=== PATIENT | female | born 1995 ===

== ENCOUNTER → 2019-05-12 | Outpatient (CLI) | payer OTHER ==
[2019-05-15 01:06] LABS: CHLAMYDIA TRACHOMATIS, NAA Negative (Negative); NEISSERIA GONORRHOEAE, NAA Negative (Negative)
== END | disposition home or self-care (01) ==
LOC: LAB SHORT 09:20 → LAB 09:20
PROVIDERS: Advanced Practice Midwife
DX: Z01.419 Encounter for gynecological examination (general) (routine) without abnormal findings (principal)
CPT/HCPCS: 87491; 87591; G0123

== ENCOUNTER 2019-11-13 05:40 | Inpatient (IN) | payer OTHER ==
[~2019-11-13] VITALS: Ht 157.5 cm; Wt 78.1 kg
[2019-11-13] MEDS ORDERED: PRENATAL TABLE1 EAC2 (06:13)
[2019-11-13] MEDS ORDERED: IRON18 MG (06:13)
[2019-11-13 06:20] LABS: BASOPHILS ABSOLUTE AUTO 0.05 K/mm3 (0.00-0.23); BASOPHILS PERCENT AUTO 1 % (0-2); EOSINOPHILS ABSOLUTE AUTO 0.22 K/mm3 (0.00-0.68); EOSINOPHILS PERCENT AUTO 2 % (0-6); Hemoglobin 9.4 g/dL (11.5-16.0); IMMATURE GRAN PERCENT AUTO 1 % (0-1); LYMPHOCYTES ABSOLUTE AUTO 2.22 K/mm3 (0.84-5.20); LYMPHOCYTES PERCENT AUTO 21 % (21-46); MONOCYTES ABSOLUTE AUTO 0.87 K/mm3 (0.16-1.47); MONOCYTES PERCENT AUTO 8 % (4-13); Mean Corpuscular HGB 22.6 pg (26.0-34.0); Mean Corpuscular HGB Conc 28.5 g/dL (31.5-36.5); Mean Corpuscular Volume 79 fL (80-100); Mean Platelet Volume 10.9 fL (9.1-12.4); NEUTROPHILS ABSOLUTE AUTO 7.16 K/mm3 (1.96-9.15); NEUTROPHILS PERCENT AUTO 67 % (41-73); Platelet Count 200 K/mm3 (150-400); RDW Coefficient Variation 19.1 % (11.7-14.2); RDW Standard Deviation 53.7 fL (35.1-46.3); Red Blood Cell Count 4.16 M/mm3 (3.80-5.20); White Blood Cell Count 10.62 K/mm3 (4.00-11.30)
[2019-11-14 05:27] LABS: Hematocrit 31.9 % (33.0-51.0); Hemoglobin 9.3 g/dL (11.5-16.0); Mean Corpuscular HGB 22.9 pg (26.0-34.0); Mean Corpuscular HGB Conc 29.2 g/dL (31.5-36.5); Mean Corpuscular Volume 79 fL (80-100); Mean Platelet Volume 11.3 fL (9.1-12.4); Platelet Count 192 K/mm3 (150-400); RDW Coefficient Variation 18.8 % (11.7-14.2); Red Blood Cell Count 4.06 M/mm3 (3.80-5.20); White Blood Cell Count 14.15 K/mm3 (4.00-11.30)
[2019-11-14] MEDS ORDERED: IBUP800 PO (08:26)
[2019-11-14] MEDS ORDERED: DOCU100 PO (08:27)
== END 2019-11-14 18:25 | disposition home or self-care (01) | DRG 807 ==
LOC: BC 05:40 → OBS 05:40 → BC 05:59
PROVIDERS: Advanced Practice Midwife; ADMIT Nurse Practitioner Obstetrics & Gynecology
PROC: 10E0XZZ Delivery of Products of Conception, External Approach (ICD-10-PCS; principal; 2019-11-13)
PROC: 10907ZC Drainage of Amniotic Fluid, Therapeutic from Products of Conception, Via Natural or Artificial Opening (ICD-10-PCS; 2019-11-13)
PROC: 3E0R3BZ Introduction of Anesthetic Agent into Spinal Canal, Percutaneous Approach (ICD-10-PCS; 2019-11-13)
PROC: 00HU33Z Insertion of Infusion Device into Spinal Canal, Percutaneous Approach (ICD-10-PCS; 2019-11-13)
DX: O99.824 Streptococcus B carrier state complicating childbirth (principal); Z37.0 Single live birth; O99.02 Anemia complicating childbirth; D50.9 Iron deficiency anemia, unspecified; Z3A.40 40 weeks gestation of pregnancy; O70.0 First degree perineal laceration during delivery; O77.0 Labor and delivery complicated by meconium in amniotic fluid
CPT/HCPCS: 36415; 51702; 85025; 85027; 86850; 86900; 86901; A9270; J0290; J1885; J2001; J2210; J2590; J3010; J7120

== ENCOUNTER → 2019-12-25 | Outpatient (CLI) | payer OTHER ==
[~2019-12-25] MED LIST: DOCU100 PO; IBUP800 PO; IRON18 MG; PRENATAL TABLE1 EAC2
[2019-12-28 01:04] LABS: CHLAMYDIA TRACHOMATIS, NAA Negative (Negative); NEISSERIA GONORRHOEAE, NAA Negative (Negative)
== END ==
LOC: LAB SHORT 13:15 → LAB 13:15
PROVIDERS: Advanced Practice Midwife
DX: Z11.3 Encounter for screening for infections with a predominantly sexual mode of transmission (principal)
CPT/HCPCS: 87491; 87591

== ENCOUNTER → 2021-05-13 | Outpatient (CLI) | payer OTHER | LOC: LAB 14:43 → LAB SHORT 14:43 | DX: J02.9 Acute pharyngitis, unspecified (principal) | CPT/HCPCS: 87081 ==

== ENCOUNTER → 2021-09-02 | Outpatient (CLI) | payer OTHER ==
[2021-09-02 13:24] LABS: BASOPHILS ABSOLUTE AUTO 0.06 K/mm3 (0.00-0.23); BASOPHILS PERCENT AUTO 1 % (0-2); EOSINOPHILS PERCENT AUTO 5 % (0-6); Hematocrit 31.3 % (33.0-51.0); IMMATURE GRAN ABSOLUTE AUTO 0.04 K/mm3 (0.00-0.10); IMMATURE GRAN PERCENT AUTO 1 % (0-1); LYMPHOCYTES ABSOLUTE AUTO 1.42 K/mm3 (0.84-5.20); LYMPHOCYTES PERCENT AUTO 17 % (21-46); MONOCYTES ABSOLUTE AUTO 0.59 K/mm3 (0.16-1.47); MONOCYTES PERCENT AUTO 7 % (4-13); Mean Corpuscular HGB 28.3 pg (26.0-34.0); Mean Corpuscular HGB Conc 31.9 g/dL (31.5-36.5); Mean Corpuscular Volume 89 fL (80-100); NEUTROPHILS PERCENT AUTO 71 % (41-73); Platelet Count 231 K/mm3 (150-400); RDW Standard Deviation 42.2 fL (35.1-46.3); Red Blood Cell Count 3.53 M/mm3 (3.80-5.20); White Blood Cell Count 8.61 K/mm3 (4.00-11.30)
== END | disposition home or self-care (01) ==
LOC: LAB SHORT 11:38 → LAB 11:38
PROVIDERS: Advanced Practice Midwife
DX: Z34.81 Encounter for supervision of other normal pregnancy, first trimester (principal)
CPT/HCPCS: 36415; 82950; 85025

== ENCOUNTER → 2021-10-31 | Outpatient (CLI) | payer OTHER | END | disposition home or self-care (01) | LOC: LAB SHORT 12:42 → LAB 12:42 | DX: Z34.81 Encounter for supervision of other normal pregnancy, first trimester (principal) | CPT/HCPCS: 87081; 87150 ==

== ENCOUNTER 2021-11-18 06:00 | Inpatient (IN) | payer OTHER ==
[~2021-11-18] VITALS: Ht 157.5 cm; Wt 70.4 kg
[2021-11-18 07:55] LABS: BASOPHILS ABSOLUTE AUTO 0.03 K/mm3 (0.00-0.23); BASOPHILS PERCENT AUTO 0 % (0-2); EOSINOPHILS ABSOLUTE AUTO 0.14 K/mm3 (0.00-0.68); EOSINOPHILS PERCENT AUTO 2 % (0-6); Hematocrit 25.2 % (33.0-51.0); Hemoglobin 7.9 g/dL (11.5-16.0); IMMATURE GRAN ABSOLUTE AUTO 0.05 K/mm3 (0.00-0.10); IMMATURE GRAN PERCENT AUTO 1 % (0-1); LYMPHOCYTES ABSOLUTE AUTO 1.73 K/mm3 (0.84-5.20); LYMPHOCYTES PERCENT AUTO 23 % (21-46); MONOCYTES ABSOLUTE AUTO 0.65 K/mm3 (0.16-1.47); MONOCYTES PERCENT AUTO 9 % (4-13); Mean Corpuscular HGB 24.8 pg (26.0-34.0); Mean Corpuscular HGB Conc 31.3 g/dL (31.5-36.5); Mean Corpuscular Volume 79 fL (80-100); NEUTROPHILS ABSOLUTE AUTO 4.96 K/mm3 (1.96-9.15); NEUTROPHILS PERCENT AUTO 66 % (41-73); Platelet Count 204 K/mm3 (150-400); RDW Coefficient Variation 14.3 % (11.7-14.2); RDW Standard Deviation 40.8 fL (35.1-46.3); Red Blood Cell Count 3.19 M/mm3 (3.80-5.20); White Blood Cell Count 7.56 K/mm3 (4.00-11.30)
[2021-11-19 05:26] LABS: Hematocrit 24.7 % (33.0-51.0); Hemoglobin 7.6 g/dL (11.5-16.0); Mean Corpuscular HGB 24.7 pg (26.0-34.0); Mean Corpuscular HGB Conc 30.8 g/dL (31.5-36.5); Mean Corpuscular Volume 80 fL (80-100); Mean Platelet Volume 11.5 fL (9.1-12.4); Platelet Count 189 K/mm3 (150-400); RDW Coefficient Variation 14.3 % (11.7-14.2); RDW Standard Deviation 41.4 fL (35.1-46.3); Red Blood Cell Count 3.08 M/mm3 (3.80-5.20)
[2021-11-19] MEDS ORDERED: IBUP800 PO (11:39)
--- NOTE | 2021-11-23 11:06 | NUR ---
UPDATED L&D SUMMARY PER EMR/RN
== END 2021-11-19 14:16 | disposition home or self-care (01) | DRG 807 ==
LOC: BC 06:00 → OBS 06:00 → BC 06:05 → OBS 06:27 → BC 06:29
PROVIDERS: ADMIT Advanced Practice Midwife
PROC: 10E0XZZ Delivery of Products of Conception, External Approach (ICD-10-PCS; principal; 2021-11-18)
DX: O99.824 Streptococcus B carrier state complicating childbirth (principal); Z37.0 Single live birth; Z3A.39 39 weeks gestation of pregnancy; O99.02 Anemia complicating childbirth; D50.9 Iron deficiency anemia, unspecified; Z87.891 Personal history of nicotine dependence; Z98.890 Other specified postprocedural states
CPT/HCPCS: 36415; 51702; 85025; 85027; 86850; 86900; 86901; 86923; 88307; A9270; J0290; J1885; J2001; J2210; J2590; J2916; J3010; J7120

== ENCOUNTER 2022-09-22 12:05 | Day surgery (SDC) | payer OTHER ==
[~2022-09-22] VITALS: Ht 162.6 cm; Wt 46.2 kg
[2022-09-22] VITALS (12 sets, daily range): BP systolic 99–111; BP diastolic 69–84
--- NOTE | 2022-09-22 14:25 | NUR ---
Ambulatory in Day Surgery. History, Chart, Medications and Allergies reviewed before start of procedure. Lungs clear T/O to Auscultation. Patient confirms NPO status and agrees with scheduled surgery. Pre-Op teaching done. Pt verbalizes understanding. Patient States Post-Procedure ride home has been arranged.
--- NOTE | 2022-09-22 14:26 | NUR ---
PT BELONGINGS PLACED UNDERNEATH GURRHODHISS FOR SAFEKEEPING.
--- NOTE | 2022-09-22 17:50 | NUR ---
PT BECAME PAINFUL IN STEP DOWN. DR FLORES MOTIRN 800, BUT PT HAD TORODOL IN O SO SHE CANNOT RECIEVE MOTRIN TILL 1999,RN CALLED DR HOPPER, ORDERS GIVEN FOR TYLENOL 1000MG PO AND OXYCODONE 5MG TO HELP CONTROL PAIN, PT EXPRESSED SHE IS PAINFULL ENOUGH SHE WANTS BOTH
--- NOTE | 2022-09-22 18:21 | NUR ---
Discharge instructions reviewed with patient. Patient verbalizes understanding. Copy given to patient to take home. Discharged via wheelchair to private car for ride home.
== END 2022-09-22 18:38 | disposition home or self-care (01) ==
LOC: ORSCMMR 12:05 → ORD 13:30 → ORSCMMR 13:30
PROVIDERS: Obstetrics & Gynecology
PROC: 0UT74ZZ Resection of Bilateral Fallopian Tubes, Percutaneous Endoscopic Approach (ICD-10-PCS; principal; 2022-09-22 15:00)
DX: N80.9 Endometriosis, unspecified (principal); Z30.2 Encounter for sterilization; F17.290 Nicotine dependence, other tobacco product, uncomplicated; F41.9 Anxiety disorder, unspecified; F32.A Depression, unspecified
CPT/HCPCS: 84703; 88302; A9270; J0461; J1100; J1885; J2405; J2704; J3010; J7120

== ENCOUNTER → 2023-07-23 | Outpatient (CLI) | payer SELFPAY | END | disposition home or self-care (01) | LOC: LAB SHORT 16:43 → LAB 16:43 | PROVIDERS: Advanced Practice Midwife | DX: Z01.419 Encounter for gynecological examination (general) (routine) without abnormal findings (principal) | CPT/HCPCS: G0123 ==